=== PATIENT | male | born 1970 | race Asian ===

== ENCOUNTER → 2024-05-26 | Day surgery (SDC) | payer OTHER ==
[~2024-05-26] MED LIST: ACETAMINOPHEN/CODEINE 300MG - 30MG TAB ONE; BARACLUDE0.5 MG PO; DEXAMETHASONE SOD PHOS INJ 4 MG/ML SDV ONE; FENTANYL CITRATE/PF 100MCG/2 ML INJ ONE; FLOMAX0.4 MG PO; IOPAMIDOL 610MG/1ML 300 MG/ML VIAL IV ONE; LIDOCAINE HCL 2% LOCAL INJ 5 ML SDV VIAL INJ ONE; LISINOPRIL10 MG PO; ONDANSETRON HCL INJ 2MG/ML 2ML 2 MG/ML VIAL ONE; PROPOFOL IV EMULSION 10 MG/ML 20 ML VIAL ONE; ROSUVASTATIN CA20 MG PO; SEVOFLURANE INHAL SOLN 250 ML PEN BTL ONE
[2024-05-26] MEDS: LACTATED RINGER'S 1,000 ML ONE (05:54)
[2024-05-26] MEDS: CEFTRIAXONE 1 GM VIAL ONE (05:55)
[2024-05-26 07:55] VITALS: TEMP 97.5
[2024-05-26 08:40] VITALS: BP 122/85
[2024-05-26] MEDS: ACETAMINOPHEN/CODEINE 300MG - 30MG TAB PO ONE (08:49)
[2024-05-26 08:55] VITALS: PULSE 59; RESP 16; O2SAT 99
== END | disposition home or self-care (01) ==
LOC: OR 05:12
PROVIDERS: ATTEND Urology
DX: N20.1 Calculus of ureter (principal); N13.30 Unspecified hydronephrosis; Z46.6 Encounter for fitting and adjustment of urinary device; N20.0 Calculus of kidney; N40.1 Benign prostatic hyperplasia with lower urinary tract symptoms; R39.14 Feeling of incomplete bladder emptying; R35.1 Nocturia; N28.1 Cyst of kidney, acquired; N39.0 Urinary tract infection, site not specified; Z91.199 Patient's noncompliance with other medical treatment and regimen due to unspecified reason; I10 Essential (primary) hypertension; E78.5 Hyperlipidemia, unspecified; B19.10 Unspecified viral hepatitis B without hepatic coma; K21.9 Gastro-esophageal reflux disease without esophagitis; F17.210 Nicotine dependence, cigarettes, uncomplicated; Z79.899 Other long term (current) drug therapy
CPT/HCPCS: 52356; 74018; 74420; 93005; C1769; C2617; J0696; J1100; J2001; J2405; J2704; J3010; J7121; Q9967